=== PATIENT | male | born 1960 | race Caucasian/White ===

== ENCOUNTER → 2017-01-24 19:00 | Emergency (ER) | payer BC ==
--- NOTE | ~2017-01-24 | HOLTER ---
Holter Monitor [facility] [address] [place]. [address] NAME: PANDA ALAN : 62 STATUS : DEP ER PAT#: [id number] AGE: 56 ADM/REG DATE : 01/24/17 MR#: [id number] REPORT SERV DATE: 02/04/17 DICTATED BY: CASE MCKENZIE DATE: 02/04/17 REPORT STATUS : Cancelled TRANSCRIBED BY: VIVIENNE DATE: 02/04/17 24-HOUR HOLTER MONITOR </RESPONSIBLE PHYSICIAN/> Pam Treadwell, MSN, [employer] INDICATIONS: A 56-year-old male with tachycardia. RECORDING QUALITY: Overall quality of study is good. RHYTHM: Rhythm is sinus which varies from 65 to 151 beats per minute with an average heart rate of 85 beats per minute. VENTRICULAR ARRHYTHMIA: There is no ventricular ectopy. SUPRAVENTRICULAR ARRHYTHMIA: There is very rare supraventricular ectopy. SYMPTOMS: No diary submitted. CONCLUSION: No symptoms reported. No significant dysrhythmia found. Please see attached worksheet for further details. Definitions for premature beat frequency Approximately Rare <100 <0.1 % Occasional 100-1500 0.1 - 1.5 % Frequent >1500 >1.5 % MISSY/VIVIENNE Case Mckenzie M.D. / [id number]
[2017-01-24 14:38] LABS: BASOPHILS 0.3 %; BASOPHILS ABSOLUTE 0.02 10/3/uL (0.0-0.16); EOSINOPHILS 0 %; HEMATOCRIT 49.8 % (40.0-51.0); IMMATURE GRANULOCYTES 0.5 %; IMMATURE GRANULOCYTES ABSOLUTE 0.03 10/3/uL (0.0-0.11); LYMPHOCYTES 24.5 %; LYMPHOCYTES ABSOLUTE 1.56 10/3/uL (0.67-4.30); MANUAL DIFF NO %; MEAN CORPUS HGB CONC 34.1 g/dL (32.0-36.0); MEAN CORPUSCULAR VOLUME 87.8 fL (80-100); MEAN PLATELET VOLUME 10.4 fL (9.2-13.0); MONOCYTES 13.6 %; MONOCYTES ABSOLUTE 0.87 10/3/uL (0.21-1.20); NEUTROPHILS 61.1 %; PLATELET COUNT 220 10/3/uL (150-400); RBC DISTRIBUTION WIDTH 14.4 % (12.0-16.0); RED CELL COUNT 5.67 10/6/uL (4.7-6.1); WHITE BLOOD CELLS 6.4 10/3/uL (4.5-10.5)
[2017-01-24 14:49] LABS: INTERNATIONAL NORMAL RATI 1.1 UNITS (-); PARTIAL THROMBO TIME 28.8 SEC (22.5-37.2)
[2017-01-24 15:01] LABS: BUN (BLOOD UREA NITROGEN) 19 MG/DL (6-23); CALCIUM, SERUM 9.3 MG/DL (8.5-10.4); CHEST PAIN PROFILE TAT 0 Hrs 27 Mins; CHLORIDE, SERUM 103 MMOL/L (96-112); CO2 (CARBON DIOXIDE) 27 MMOL/L (24-34); CREATININE 1.44 MG/DL (0.70-1.30); GFR AFRICAN AMERICAN 63 ML/MIN (>=60); GFR NON AFRICAN AMERICAN 54 ML/MIN (>=60); GLUCOSE, SERUM 93 MG/DL (60-99); POTASSIUM, SERUM 4.2 MMOL/L (3.5-5.3); SODIUM, SERUM 141 MMOL/L (135-148); TROPONIN I <0.02 NG/ML (<0.05)
[2017-01-24 18:03] LABS: ASCORBIC ACID (UR NOT ORDER) 40 (NEG); BILIRUBIN, URINE NEGATIVE (NEG); ER URINALYSIS TAT 0 Hrs 19 Mins; KETONE, URINE 80 MG/DL (NEG); LEUKOCYTE ESTERASE(NOT OR NEG (NEG); NITRITE (URINE) NEG (NEG); WBC (NOT ORDERED) (RFLEX) 1 (0-5)
== END | disposition home or self-care (01) ==
LOC: ER 19:00
PROVIDERS: Emergency Medicine
DX: R00.0 Tachycardia, unspecified (principal); N28.9 Disorder of kidney and ureter, unspecified; I10 Essential (primary) hypertension
CPT/HCPCS: 71020; 80048; 81001; 83735; 84443; 84484; 85025; 85610; 85730; 93005; 93225; 99285